=== PATIENT | male | born 1995 | race Asian ===

== ENCOUNTER 2018-01-19 04:02 | Emergency (ER) | payer OTHER ==
[~2018-01-19] VITALS: Ht 175.3 cm; Wt 77.3 kg
[2018-01-19 04:06] VITALS: BP 126/78
== END 2018-01-19 04:38 | disposition home or self-care (01) ==
LOC: EMS 04:02
DX: F10.129 Alcohol abuse with intoxication, unspecified (principal); Y90.9 Presence of alcohol in blood, level not specified
CPT/HCPCS: 99283